=== PATIENT | male | born 1955 | race Caucasian/White ===

== ENCOUNTER → 2024-01-17 08:41 | Outpatient (REF) | payer MEDICARE, SELFPAY | LOC: HWRAD 08:41 | PROVIDERS: ATTENDING PHYSICIAN Internal Medicine Hematology & Oncology; FAMILY PHYSICIAN Family Medicine | DX: D72.829 Elevated white blood cell count, unspecified (principal); D52.9 Folate deficiency anemia, unspecified; C91.10 Chronic lymphocytic leukemia of B-cell type not having achieved remission | CPT/HCPCS: 71260; 74177; Q9967 ==

== ENCOUNTER → 2024-02-15 13:18 | Outpatient (REF) | payer MEDICARE, SELFPAY | LOC: DHCBC MAIN 13:18 | PROVIDERS: ATTENDING PHYSICIAN Surgery Vascular Surgery; FAMILY PHYSICIAN Family Medicine; REFERRING PHYSICIAN Internal Medicine Cardiovascular Disease | DX: I71.40 Abdominal aortic aneurysm, without rupture, unspecified (principal); I73.9 Peripheral vascular disease, unspecified; Z01.810 Encounter for preprocedural cardiovascular examination | CPT/HCPCS: 93306 ==

== ENCOUNTER → 2024-02-23 14:43 | Outpatient (REF) | payer MEDICARE, SELFPAY | LOC: HWRAD 14:43 | PROVIDERS: ATTENDING PHYSICIAN Nurse Practitioner Acute Care; FAMILY PHYSICIAN Family Medicine; OTHER PHYSICIAN Surgery Vascular Surgery; REFERRING PHYSICIAN Internal Medicine Cardiovascular Disease | DX: I71.40 Abdominal aortic aneurysm, without rupture, unspecified (principal); Z01.810 Encounter for preprocedural cardiovascular examination | CPT/HCPCS: 93880 ==

== ENCOUNTER → 2024-03-05 07:07 | Outpatient (REF) | payer MEDICARE, SELFPAY | LOC: DHCBC/DCA 07:07 | PROVIDERS: ATTENDING PHYSICIAN Surgery Vascular Surgery | DX: I71.40 Abdominal aortic aneurysm, without rupture, unspecified (principal); I73.9 Peripheral vascular disease, unspecified; Z01.810 Encounter for preprocedural cardiovascular examination | CPT/HCPCS: 78452; 93017; A9500; J2785 ==

== ENCOUNTER 2024-05-15 12:43 | Emergency (ER) | payer MEDICARE, SELFPAY ==
[2024-05-15 12:50] VITALS: BP 131/73
[2024-05-15 13:20] LABS: % Basophils 0.3 % (0-2); % Eosinophils 3.3 % (0-6); % Immature Granulocytes 0.2 % (0-0.5); % Lymphocytes 64.4 % (20.5-51.1); % Monocytes 1.7 % (1.7-9.3); % Neutrophils 30.1 % (42.2-75.2); Absolute Basophils 0.1 10^3/uL (0-0.2); Absolute Eosinophils 0.6 10^3/uL (0-0.7); Absolute Lymphocytes 11.8 10^3/uL (1.2-3.4); Absolute Monocytes 0.3 10^3/uL (0.1-0.6); Absolute Neutrophils 5.5 10^3/uL (1.4-6.5); Hematocrit 27.5 % (39.0-52.0); Hemoglobin 9.4 g/dL (13.0-18.0); Mean Corp Hgb Conc. 34.2 g/dL (33.0-37.0); Mean Corpuscular Hgb 33.5 pg (27.0-31.0); Mean Corpuscular Volume 97.9 fL (80.0-94.0); Mean Platelet Volume 9.4 fL (7.4-10.4); Nucleated Red Blood Cells % 0 % (-); Platelet Count 228 10^3/uL (130-400); Red Blood Cell Count 2.81 10^6/uL (4.70-6.10); Red Cell Dist. Width 13.9 % (11.5-14.5); White Blood Cell Count 18.4 10^3/uL (4.8-10.8)
[2024-05-15 13:48] LABS: ALT (SGPT) 13 U/L (0-50); AST (SGOT) 17 U/L (17-59); Albumin 3.9 g/dl (3.5-5.0); Alkaline Phosphatase 98 U/L (38-126); Blood Urea Nitrogen 45 mg/dl (9-20); Calcium 8.9 mg/dl (8.4-10.2); Carbon Dioxide 22 mmol/L (22-30); Chloride 100 mmol/L (98-107); Glucose 218 mg/dl (70-99); Potassium 4.8 mmol/L (3.5-5.1); Sodium 131 mmol/L (135-145); Total Bilirubin 0.7 mg/dl (0.2-1.3); Total Protein 6.7 g/dl (6.3-8.2); eGFR 12.33
[2024-05-15 14:19] VITALS: BMI 19.1
[2024-05-15 14:27] VITALS: BP 135/67
--- NOTE | 2024-05-15 15:00 | ED.GENMED ---
History of Present Illness
<Justine Zabala PA-C - Last Filed: 05/15/24 19:01>
General
Chief Complaint: Weakness
Source: patient and family
Exam Limitations: none
Time Seen by Provider: 05/15/24 14:39
Nursing documentation reviewed up to this point in time: agreed with
History of Present Illness
History of Present Illness:
68 y/o M with h/o recent AAA repair and R iliac artery stent last week at [facility]
noticed incidentally on imaging after pt's w/u for CLL last month
had CKD cr 1.9 prior to procedure but worsened to 3 after
had neprhology eval there with imaging, etc and maybe mild ATN
pt was discharged with cr of 3.5 and sent for outpatien tlabs showing 2 days ago that his cr worsened to 4.4
pt has not been eating/drinking and has been having weight loss and fatigue
incidnetally he noticed marlys on his right back that looks like shingles that is new today
pt has not had any trouble urinating
no back pain, cp, sob, fever
Past History
<Justine Zabala PA-C - Last Filed: 05/15/24 19:01>
Past History
ED Past Medical History: Other (Peripheral vascular disease)
ED Past Surgical History: Orthopedic (Rotator cuff repair, carpal tunnel repair)
Patient has exhibited threatening behavior?: No
Social History
Tobacco: Smoker
Alcohol: None
Drug: None
Personal:
Living: with family
Employment: Employed
Family History
Family History: Early CAD
Review of Systems
<Justine Zabala PA-C - Last Filed: 05/15/24 19:01>
Review of Systems
Allergies reviewed?: Yes
All Other Systems: Not applicable
Phy Exam
<Justine Zabala PA-C - Last Filed: 05/15/24 19:01>
Physical Exam
Physical Exam:
GENERAL: Alert , in no apparent distress, thin
EYE: pupils equal and reactive
NECK: Supple
ENT: o/p clr, dry mouth
CARDIAC: Regular rate and rhythm .
LUNGS: Clear breath sounds bilaterally, no acute respiratory distress, no wheezes/rales/rhonchi
ABDOMEN: Soft, without focal tenderness, no r/g, no cvat, normal bowel sounds
well healed incisions
NEUROLOGICAL: Alert and oriented, no focal neuro deficits
SKIN: Warm and dry, skin intact.
vesicular rash right back c/w shingles
MUSCULOSKELETAL: No edema, well perfused. neg ade's sign
PSYCH: Normal and appropriate interaction.
Course
<Justine Zabala PA-C - Last Filed: 05/15/24 19:01>
Orders/Labs/Results
Orders:
Orders
05/15/24 12:55
Electrocardiogram (*1) Urgent
Reason for Study: Fatigue / Weakness
EKG- Treatment ONCE
05/15/24 13:05
Complete Blood Count/With Diff Urgent
Comprehensive Metabolic Panel Urgent
05/15/24 15:31
Bladder Scan- Treatment ONCE
05/15/24 15:32
0.9% Sodium Chloride 500 ml [Nss] 500 ml IV BOLUS
05/15/24 15:47
Urinalysis Reflex To Culture Urgent
Date Specimen was Collected: 05/15/24
Time Specimen was Collected: 15:45
Urine Microscopic Reflex Cult Urgent
05/15/24 17:41
Consult Nephrology [NEPHROLOGY CONSULT] Urgent
Consulting Provider: Fiona Jacome
Was physician already notified: Yes
05/15/24 18:13
HOSPITALIST CONSULT Urgent
Consulting Provider: Christopher Iglesias
Was physician already notified: Yes
05/15/24 18:45
US Renal Only W/O Bladder Urgent
Comment:
Reason For Exam: acute renal failure, recent AAA repair and R iliac
05/15/24 18:52
0.9% Sodium Chloride 500 ml [Nss] 500 ml IV BOLUS
05/15/24 18:58
US Aorta [US Abdominal Aorta] Urgent
Comment:
Reason For Exam: s/p AAA repair, arf
Abnormal Lab Results
05/15/24 05/15/24
13:05 15:47
WBC 18.4 H 10^3/uL
(4.8-10.8)
RBC 2.81 L 10^6/uL
(4.70-6.10)
Hgb 9.4 L g/dL
(13.0-18.0)
Hct 27.5 L %
(39.0-52.0)
MCV 97.9 H fL
(80.0-94.0)
MCH 33.5 H pg
(27.0-31.0)
Absolute Lymphs (auto) 11.8 H 10^3/uL
(1.2-3.4)
Neutrophils % 30.1 L %
(42.2-75.2)
Lymphocytes % 64.4 H %
(20.5-51.1)
Sodium 131 L mmol/L
(135-145)
BUN 45 H mg/dl
(9-20)
Creatinine 4.8 H* mg/dL
(0.7-1.3)
Glucose 218 H mg/dl
(70-99)
Urine Bilirubin 1+ A
(Negative)
Leukocyte Esterase Rfl Trace A
(Negative)
Urine Bacteria (Reflex) Few A
(Negative)
Urine Glucose Trace A
(Negative)
Urine Albumin (Reflex) 1+ A
(Neg - Trace)
05/15/24 13:05
05/15/24 13:05
Vital Signs
Initial and Last Documented VS:
Initial Vital Signs
Temp Pulse Resp BP Pulse Ox
98.2 F 92 16 131/73 95
05/15/24 12:50 05/15/24 12:50 05/15/24 12:50 05/15/24 12:50 05/15/24 12:50
Last Documented Vital Signs
Temp Pulse Resp BP Pulse Ox
98.2 F 79 19 135/67 99
05/15/24 12:50 05/15/24 14:27 05/15/24 14:27 05/15/24 14:27 05/15/24 14:27
<Hill Bhatti, DO - Last Filed: 05/15/24 19:56>
Orders/Labs/Results
Orders:
Orders
05/15/24 12:55
Electrocardiogram (*1) Urgent
Reason for Study: Fatigue / Weakness
EKG- Treatment ONCE
05/15/24 13:05
Complete Blood Count/With Diff Urgent
Comprehensive Metabolic Panel Urgent
05/15/24 15:31
Bladder Scan- Treatment ONCE
05/15/24 15:32
0.9% Sodium Chloride 500 ml [Nss] 500 ml IV BOLUS
05/15/24 15:47
Urinalysis Reflex To Culture Urgent
Date Specimen was Collected: 05/15/24
Time Specimen was Collected: 15:45
Urine Microscopic Reflex Cult Urgent
05/15/24 17:41
Consult Nephrology [NEPHROLOGY CONSULT] Urgent
Consulting Provider: Fiona Jacome
Was physician already notified: Yes
05/15/24 18:13
HOSPITALIST CONSULT Urgent
Consulting Provider: Christopher Iglesias
Was physician already notified: Yes
05/15/24 18:45
US Renal Only W/O Bladder Urgent
Comment:
Reason For Exam: acute renal failure, recent AAA repair and R iliac
05/15/24 18:52
0.9% Sodium Chloride 500 ml [Nss] 500 ml IV BOLUS
05/15/24 18:58
US Aorta [US Abdominal Aorta] Urgent
Comment:
Reason For Exam: s/p AAA repair, arf
Abnormal Lab Results
05/15/24 05/15/24
13:05 15:47
WBC 18.4 H 10^3/uL
(4.8-10.8)
RBC 2.81 L 10^6/uL
(4.70-6.10)
Hgb 9.4 L g/dL
(13.0-18.0)
Hct 27.5 L %
(39.0-52.0)
MCV 97.9 H fL
(80.0-94.0)
MCH 33.5 H pg
(27.0-31.0)
Absolute Lymphs (auto) 11.8 H 10^3/uL
(1.2-3.4)
Neutrophils % 30.1 L %
(42.2-75.2)
Lymphocytes % 64.4 H %
(20.5-51.1)
Sodium 131 L mmol/L
(135-145)
BUN 45 H mg/dl
(9-20)
Creatinine 4.8 H* mg/dL
(0.7-1.3)
Glucose 218 H mg/dl
(70-99)
Urine Bilirubin 1+ A
(Negative)
Leukocyte Esterase Rfl Trace A
(Negative)
Urine Bacteria (Reflex) Few A
(Negative)
Urine Glucose Trace A
(Negative)
Urine Albumin (Reflex) 1+ A
(Neg - Trace)
05/15/24 13:05
05/15/24 13:05
Vital Signs
Initial and Last Documented VS:
Initial Vital Signs
Temp Pulse Resp BP Pulse Ox
98.2 F 92 16 131/73 95
05/15/24 12:50 05/15/24 12:50 05/15/24 12:50 05/15/24 12:50 05/15/24 12:50
Last Documented Vital Signs
Temp Pulse Resp BP Pulse Ox
98.2 F 79 19 135/67 99
05/15/24 12:50 05/15/24 14:27 05/15/24 14:27 05/15/24 14:27 05/15/24 14:27
<Justine Zabala PA-C - Last Filed: 05/15/24 19:01>
MDM/Problems Addressed
Differential Diagnosis Includes:
ARF, obstruction, dehydration, vascular injury less likely, has had imaging post op
MDM/Problems Addressed:
68 y/o M cll
AAA and R iliac artery stenting last week [facility]
had HIRA following procedure
worsening on outpatient labs
sent by neoprhology for /rand
family spoke with his retail and promotions coordinator and vascular surgery and both said he cold come to [place]
pt is not eating well, looks dry
bun 40s
cr 4.8
ordered ua with PVR
d/w pt's retail and promotions coordinator dr. kelly from [facility] who felt the patient could stay at this hospital and have a nephrology consult for workup for his worsening HIRA. She also thought with the weight loss it could be all prerenal.
Patient's potassium is normal. I did discuss with Dr. Jacome who is the retail and promotions coordinator on-call for nephrology here and she says she will be in touch with Dr. Kelly. Dr. Kelly's number is [phone] Montano is the vascular surgeon and his
number is [phone]
<Justine Zabala PA-C - Last Filed: 05/15/24 19:01>
*Critical Care Note
Total Time (30-74mins, 75-104mins- exclusive of procedures): Not Applicable
<Hill Bhatti DO - Last Filed: 05/15/24 19:56>
*Critical Care Note
Total Time (30-74mins, 75-104mins- exclusive of procedures): 45 minutes
<Justine Zabala PA-C - Last Filed: 05/15/24 19:01>
Update Note
Update Note:
05/15/2024 1855 PM
the patient was admitted with nephrology consult and ultimately the hospitalist requested he be transferred back to [facility] for the ability to obtain vascular consultation since he is only 2 weeks post op
the hopsitalist apparently spoke with vascular surgery here who felt that the patietn would best be served there, as he was just operated on.
i did speak with dr. montano vascular surgery at [facility] who did not feel that the patietn needed to be transferred, that the graft was evaluated and unliekyl to be infected
ultimately he was accepted by [facility] hospitalist service and will arrange transport
he requested renal US
pt does have a shingles rash and will need contact precautions
ED Attending Note
<Justine Zabala PA-C - Last Filed: 05/15/24 19:01>
-
Portions of this chart may have been created with voice recognition software.� Occasional wrong word or��sound alike� substitutions may have occurred due to the inherent limitations of voice recognition software.
<Hill Bhatti DO - Last Filed: 05/15/24 19:56>
ED Attending Note
Patient seen and examined by attending physician: Yes
I performed the substantive portion of visit, reviewed & personally made and approve the management plan that is documented in note by myself or DIXON.: Yes
ED Attending Note:
5-year-old male with recent AAA repair who presents with progressive renal failure. Patient is stable. Exam: Awake and alert, no complaints, no respiratory distress. Assessment and plan: Case extensively discussed with our medicine team and renal
as well as [facility] nephrology, medicine and vascular surgery. Vascular surgery doubts any complication related to his current renal function. Postop hospital team recommends transfer. Case was accepted by vascular surgery somewhat
reluctantly however. Patient remained stable. [facility].
Discharge Plan
Departure
Patient Disposition: Acute Care Hospital
Date of Disposition: 05/15/24
Time of Disposition: 17:40
Condition: Fair
Discharge Problem:
Acute renal failure
Prescriptions:
No Action
nicotine 21 MG patch 24 hour
21 mg transdermal DAILY
clopidogrel 75 MG tablet
75 mg PO DAILY
atorvastatin [Lipitor] 20 mg Tablet
20 mg PO NOON
amlodipine [Norvasc] 5 mg Tablet
5 mg PO NOON
Referrals:
Jeffrey Salinas, DO [Family Provider] -
Hospital Transfer
Other hospital: [facility]
I certify that the patient requires transfer: Yes
Discussed case with accepting physician: reagan
Reason for transfer: higher level of care and availability of service
Interventions
Interventions:
*Risk Screen - Suicide Last Done: 05/15/24 14:33
*General Assessment Last Done: 05/15/24 14:32
*Neglect/Abuse Screening Last Done: 05/15/24 14:33
ED- Fall Risk Assessment Last Done: 05/15/24 14:35
*ED COVID-19 Vaccine History Last Done: 05/15/24 12:50
ED- Cardiac Assessment Last Done: 05/15/24 14:35
ED- Neurological Assessment Last Done: 05/15/24 14:35
ED- Pulmonary Assessment Last Done: 05/15/24 14:35
Discharge Date and Time
Print Language: ITALIAN
[2024-05-15 16:03] LABS: Urine Albumin 1+ (Neg - Trace); Urine Bilirubin 1+ (Negative); Urine Character Clear (Clear); Urine Color Yellow; Urine Glucose Trace (Negative); Urine Ketone Negative (Negative); Urine Leukocyte Trace (Negative); Urine Nitrite Negative (Negative); Urine Occult Blood Negative (Negative); Urine Specific Gravity 1.025 (<1.030); Urine Urobilinogen 1+ (Neg - 1+)
[2024-05-15 16:31] LABS: Urine Bacteria Few (Negative); Urine Red Blood Cell 0-2 /HPF (0-2)
[2024-05-15] MEDS: NSS 500 IV ×2 (16:46→19:10)
--- NOTE | 2024-05-15 17:42 | CON.HOSP ---
Addendum entered and electronically signed by Christopher Iglesias MD 05/16/24 07:54:
As per PA note, pt underwent endograft implantation at [facility] on 04/29. He had recently been dx with CLL, with a baseline WBC of ~13k. Post procedure his WBC apparently remained ~baseline, though his Creat trended up into the mid 3's. Outpatient labs
now demonstrated a Creat of 4.4 and was recommended patient present to ER for further evaluation. He is here with his twin sister, who supplies the bulk of the history
Cigs 1ppd x 40 years, currently states 11/23 ppd
Lungs holoexpiratory wheeze, E>>I
CV reg
Abd soft, nondistended
Ext no edema
Skin classic shingles rash rt side, back most prominently, dermatome T5
Neuro awake, alert, as per sister, no change in cognition from baseline
Imp: AKF on CKD of uncertain etiology
Hx of CLL with significant rise in WBC
s/p recent endograft for 6.5 cm AAA
COPD with active wheeze
~10 lb wt loss since procedure
Acute shingles
P: call placed and discussed with Dr. Hal Garvin who recommends Vascular evaluation with surgeon who performed the procedure and knows the patient well. Further discussed with Dr. Jacome who agrees that further evaluation should be performed at center
where recent procedure performed to allow for a more comprehensive evaluation. Discussed with ER, NICOLE Stone and transfer arrangements were put in place.
Time spent on evaluation and management 90 minutes
Was transferred to [facility]
Original Note:
Consultation
-
Date/Time Consultation Requested: May 15, 2024 at 1600
Date/Time Consultation Performed: May 15 at 1700
Requesting Provider: NICOLE Stone-Ana
Performing Provider: Dr. Christopher Iglesias
Reason for Consultation: Acute Kidney Injury
Family Physician
-
Family Physician: Jeffrey Salinas
Chief Complaint
-
Worsening Renal Function
History of Present Illness
Patient is a 68 y/o male past medical history of peripheral artery disease with recent AAA repair and right iliac stent placement at [place] on April 29 who presents with worsening renal function. Prior to procedure patient's creatinine was 1.9.
Patient's creatinine osmel to mid 3s post-procedure which was thought to be related to hypotension vs contrast induced ATN. His creatinine was stable for several days prior to discharge however since discharge renal function has worsen over the last
week and Cr is now up to 4.8. Patient has been experiencing poor appetite since the procedure and has lost about 10lbs.
Medical History
Past Medical History
Past Medical History: Reports Other
Additional Past Medical History:
Peripheral Arterial Disease
Abdominal Aortic Aneurysm
Essential Hypertension
CKD Stage III
Past Surgical History: Reports Other
Additional Past Surgical History:
AAA Repair
Right Iliac Artery Stent
Left Carpal Tunnel
Right Rotator Cuff
Social History
Tobacco: Smoker (Patient reports about 5 cigarettes per day)
Family History
Family History: Reviewed & Not Pertinent
Allergies / Home Medications
Allergies reflects when Allergies were last updated in [employer].
Home Medications with original date entered in [employer]
Allergy/Medication List:
Allergies
Allergy/AdvReac Type Severity Reaction Status Date / Time
No Known Allergies Allergy Verified 05/15/24 12:54
Home Medications
clopidogrel 75 mg tablet 75 mg PO DAILY 03/10/20
nicotine 21 mg/24 hr daily transdermal patch 21 mg transdermal DAILY 03/10/20
amlodipine 5 mg tablet (Norvasc) 5 mg PO NOON 05/15/24
atorvastatin 20 mg tablet (Lipitor) 20 mg PO NOON 05/15/24
Review of Systems
-
A 12 point Review of Systems was completed except as noted: Yes
Constitutional: Denies Fever or Chills
Respiratory: Denies Cough or Trouble Breathing
Cardiac: Denies Chest Pain or Palpitations
Physical Exam
Vital Signs
Vital Signs
Temp Pulse Resp BP Pulse Ox
98.2 F 79 19 135/67 99
05/15/24 12:50 05/15/24 14:27 05/15/24 14:27 05/15/24 14:27 05/15/24 14:27
Physical Exam
General: No Apparent Distress and Comfortable
HEENT: Normocephalic and Anicteric
Respiratory: Wheezes and Non Labored Respirations
Cardiac: S1/S2 and Regular Rhythm
GI: Soft and Non Tender
Musculoskeletal: No Clubbing, No Cyanosis and No Edema
Skin: Warm, Dry and Other (Vesicular rash noted across right back/flank)
Neuro: Awake, Alert and Oriented
Psych: Calm
Laboratory Results
-
Laboratory Results
05/15/24 13:05
05/15/24 13:05
Total Bilirubin 0.7 mg/dl (0.2-1.3) 05/15/24 13:05
AST 17 U/L (17-59) 05/15/24 13:05
ALT 13 U/L (0-50) 05/15/24 13:05
Alkaline Phosphatase 98 U/L (38-126) 05/15/24 13:05
Data Reviewed
-
Lab Data: Labs Reviewed
Impression / Plan
-
Acute Kidney Injury on CKD III - High Clinical Concern for Post-Op Complication
-Reviewed with Nephrology and Vascular Surgery who both recommend transfer to [place] where patient's surgery was performed
-Reviewed with emergency department who will arrange transfer
--- NOTE | 2024-05-15 20:08 | W.PN.UPDATE ---
Update Note
Progress Note Update
Briefly, Mr. Leon is a 68YOM with a history of significant PAD and recent diagnosis of CLL who was incidentally found to have an 11cm AAA. About two weeks ago, he underwent a repair and a R iliac artery stent placement at [facility]
[place]. Per the oxygen equipment preparer (Dr. Weems) who cared for him at [facility], prior to the surgery his Cr was 1.9. Post operatively, his Cr peaked around 3.6, and he was discharged with a Cr around 2.8-3.2. The mechanism of injury to his kidney was
thought to be ATN vs KASSANDRA. No casts were seen on microscopy but he was noted to have 2+ protein (?ATN). JOVANY was held and the patient was discharged with amlodipine 5mg. Post operative blood work showed a Cr elevation to 4.4 and the patient was
encouraged to present to the ER. He is vitally stable. Patient's labs are notable for a Cr of 4.9 and WBC count of 18. He denies any pain or discomfort over his surgical site. His physical exam was notable for a vesicular rash in a dermatomal
distribution on his back. He has lost 10+ lbs since discharge and states he has minimal appetite.
I discussed with the patient that since he is so close to his surgery, I would like eval by vascular surgery. Unfortuantely, we are unable to provide that here at . My recommendation would be for transfer to [facility] so the patient can be eval'd by
vascular surgery. His rising Cr is extremely concerning and if there is a reversible systemic process going on it should be managed SHANI. In the interim, I would obtain UA, UPCR, UACR, kidney ultrasound + PVR, and consider duplex if these are all
benign. He has no urgent indications for dialysis at this time.
[2024-05-15 20:46] VITALS: BP 152/76
[2024-05-15 21:17] LABS: Protein/creatinine Ratio 0.5; Urine Protein 89 mg/dl; Urine Sodium 24 mmol/L (30-90)
[2024-05-15 21:21] LABS: Microalbumin, Random Urine 10.3 mg/dl (0.6-1.7); Microalbumin/creatinine Ratio 60.3 mg/g
== END 2024-05-15 21:25 | disposition short-term general hospital (02) ==
LOC: EMR 12:43
PROVIDERS: Emergency Medicine; Physician Assistant; CONSULT PHYSICIAN Internal Medicine; CONSULT PHYSICIAN Student in an Organized Health Care Education/Training Program; EMERGENCY PHYSICIAN Emergency Medicine; FAMILY PHYSICIAN Family Medicine
DX: N17.9 Acute kidney failure, unspecified (principal)
CPT/HCPCS: 99291; 96360; 76775; 80053; 81003; 81015; 82043; 82570; 84156; 84300; 85025; 93005

== ENCOUNTER 2025-04-16 16:32 | Emergency (ER) | payer MEDICARE, SELFPAY ==
--- NOTE | 2025-04-16 16:39 | ED.GENMED ---
History of Present Illness
General
Chief Complaint: Breathing Problem
Time Seen by Provider: 04/16/25 16:38
History of Present Illness
History of Present Illness:
TIME OF INITIAL ENCOUNTER: 3 PM
HPI: The patient presents due to shortness of breath. He has a history of COPD. He does not wear oxygen at home. I spoke to his sister at bedside who states that he does not have heart failure. The patient has noted lower extremity edema. He
has associated cough and chest congestion.
EXAM:
GENERAL: Is ill-appearing, patient is afebrile
HEENT: Moist oral mucosa
CARDIOVASCULAR: No murmurs, normal heart rate, regular rhythm, No chest wall tenderness
PULMONARY: Moderate respiratory distress, coarse breath sounds with wheeze bilaterally
ABDOMEN: Soft with no peritoneal signs, no tenderness
NEUROLOGIC: Fair strength all extremities, no coordination deficits
PSYCHIATRIC: Appears somewhat confused with limited insight and judgment
EXTREMITIES: Nontender, no edema, moves all extremities equally
SKIN: No rash, no lesions
NUMBER AND COMPLEXITY OF PROBLEMS ADDRESSED AT THE ENCOUNTER
� Chronic conditions affecting care: COPD, CLL
� Acute Exacerbation and/or Progression of Chronic Illness: This is an acute problem
� Differential Diagnosis includes: COPD exacerbation, pneumonia, bronchiectasis, reactive airway disease, bronchitis, low suspicion for CHF
AMOUNT AND/OR COMPLEXITY OF DATA TO BE REVIEWED AND ANALYZED
� I performed an independent evaluation of and my interpretation is:
EKG: Sinus 87, septal Q waves with minimal ST elevation slightly more prominent in comparison to 05/15/2024, PVCs
CT:
X-rays: Chest x-ray shows some densities on top of COPD
Laboratory Studies: White count 15.3 electrolytes normal, creatinine 2.4 which is lower than prior, BNP is over 2000 with no old to compare, troponin 0.015
Other:
� Review of other/old records: The patient was admitted with renal insufficiency in April 2024. After management of AAA and right iliac artery stent placed he is creatinine 1 from a baseline of 1.9-3.6 last year which was felt to
be either ATN or KASSANDRA as the patient also had 2+ protein in the urine.
� Clinical information was obtained by an independent historian: I spoke to the sister at bedside
� Prescriptions/Medications Considered but not given:
� Further testing considered but not performed:
RISK OF COMPLICATIONS AND/OR MORBIDITY OR MORTALITY OF PATIENT MANAGEMENT
� Social determinants of health affecting care:
� Discussion with other providers: Hospitalist, Dr. Masters for admission
� Escalation of care including admission/observation vs risk of discharge considered: The patient was seen immediately upon arrival. He was given several DuoNebs and IV steroids. The patient was briefly on oxygen initially
placed on in triage however after I took him off of oxygen his room air sats, after treatments have been 97%. Creatinine has improved compared to April of last year when it was 4.8.
ANY OTHER UPDATES:
5:30 PM: I reassessed patient. Sats are about 95% on room air. Work of breathing has greatly improved. Still with wheeze.
Past History
Past History
ED Past Medical History: Other (Peripheral vascular disease)
ED Past Surgical History: Orthopedic (Rotator cuff repair, carpal tunnel repair)
Patient has exhibited threatening behavior?: No
Social History
Tobacco: Smoker
Alcohol: None
Drug: None
Personal:
Living: with family
Employment: Employed
Family History
Family History: Early CAD
Phy Exam
Physical Exam
Physical Exam:
See HPI
Scores
Heart Failure Risk
Heart Failure Risk Score: Not Applicable
Course
Orders/Labs/Results
Orders:
Orders
04/16/25 15:15
Complete Blood Count/With Diff Routine
Comprehensive Metabolic Panel Routine
NT-proBNP Routine
Troponin I Routine
04/16/25 16:51
Electrocardiogram (*1) Urgent
Reason for Study: Chest Pain
EKG- Treatment ONCE
04/16/25 17:41
Azithromycin 500 mg/250 ml [Zithromax Infusion] 500 mg in 250 ml IV NOW
CefTRIAXone [Rocephin] 1,000 mg IV NOW STA
04/16/25 17:48
CT Chest W/o Iv Contrast Urgent
Comment:
Reason For Exam: smoker, abnormal CXR
04/16/25 18:06
Lactic Acid Q4H
Comment: CANCEL 2nd LACTIC ACID IF 1st LACTIC ACID IS LESS THAN 2
Blood Culture Q30M
PACO Source: Blood/Venous
Specimen Description:
04/16/25 18:07
Blood Culture Q30M
PACO Source: Blood/Venous
Specimen Description:
04/16/25 18:11
Sterile Water [Sterile Water For Injection] 10 ml .ROUTE .[facility]
04/16/25 21:45
Lactic Acid Q4H
Comment: CANCEL 2nd LACTIC ACID IF 1st LACTIC ACID IS LESS THAN 2
Abnormal Lab Results
04/16/25
15:15
WBC 15.3 H 10^3/uL
(4.8-10.8)
RBC 4.41 L 10^6/uL
(4.70-6.10)
MCV 99.1 H fL
(80.0-94.0)
MCH 32.9 H pg
(27.0-31.0)
Absolute Lymphs (auto) 9.8 H 10^3/uL
(1.2-3.4)
Absolute Monos (auto) 1.8 H 10^3/uL
(0.1-0.6)
Neutrophils % 22.6 L %
(42.2-75.2)
Lymphocytes % 64.2 H %
(20.5-51.1)
Monocytes % 11.5 H %
(1.7-9.3)
BUN 27 H mg/dl
(9-20)
Creatinine 2.4 H mg/dL
(0.7-1.3)
Alkaline Phosphatase 137 H U/L
(38-126)
Total Protein 8.6 H g/dl
(6.3-8.2)
04/16/25 15:15
04/16/25 15:15
Vital Signs
Initial and Last Documented VS:
Initial Vital Signs
Temp Pulse Ox
36.3 C 100
04/16/25 15:30 04/16/25 15:30
Last Documented Vital Signs
Temp Pulse Resp BP Pulse Ox
36.3 C 89 21 181/85 97
04/16/25 15:30 04/16/25 18:30 04/16/25 18:30 04/16/25 18:00 04/16/25 18:30
*Critical Care Note
Total Time (30-74mins, 75-104mins- exclusive of procedures): Not Applicable
ED Attending Note
-
Portions of this chart may have been created with voice recognition software.� Occasional wrong word or��sound alike� substitutions may have occurred due to the inherent limitations of voice recognition software.
Discharge Plan
Departure
Patient Disposition: Admit
Date of Disposition: 04/16/25
Time of Disposition: 17:45
Presentation/result/management discussed w/ accepting MD/DO: Hospitalist
Discharge Problem:
Acute exacerbation of chronic obstructive pulmonary disease (COPD)
Prescriptions:
No Action
clopidogrel 75 MG tablet
75 mg PO DAILY
ibuprofen [Advil] 200 mg Tablet
400 mg PO BIDPRN PRN (Reason: MILD PAIN)
mirtazapine 15 mg tablet
15 mg PO HS
Referrals:
UNKNOWN - PT DOES,NOT KNOW [Family Provider]
Interventions
Interventions:
*Risk Screen - Suicide Last Done: 04/16/25 15:30
*General Assessment Last Done: 04/16/25 15:30
*Neglect/Abuse Screening Last Done: 04/16/25 15:30
*ED- Fall Risk Assessment Last Done: 04/16/25 15:30
*ED COVID-19 Vaccine History Last Done: 04/16/25 17:30
ED- Cardiac Assessment Last Done: 04/16/25 15:30
ED- Pulmonary Assessment Last Done: 04/16/25 15:30
Discharge Date and Time
Print Language: TANZANIAN
[2025-04-16 16:45] VITALS: BP 154/87
--- NOTE | 2025-04-16 16:52 | DOWNTIME ---
There was a [employer] Downtime on 04/16/2025 from 1230 to 04/16/2025 at 1550. Downtime documentation of patient's care, including medication administrations, has been reconciled in the electronic record per guidelines. Refer to the
patient's paper chart under the miscellaneous tab to see printed paper medication records and downtime forms.
[2025-04-16 17:00] VITALS: BP 152/84
[2025-04-16 17:25] LABS: ALT (SGPT) 15 U/L (0-50); AST (SGOT) 21 U/L (17-59); Albumin 4.6 g/dl (3.5-5.0); Alkaline Phosphatase 137 U/L (38-126); Blood Urea Nitrogen 27 mg/dl (9-20); Calcium 9.1 mg/dl (8.4-10.2); Carbon Dioxide 25 mmol/L (22-30); Chloride 107 mmol/L (98-107); Estimated Creatinine Clearance 27 ml/min; Glucose 95 mg/dl (70-99); Potassium 4.9 mmol/L (3.5-5.1); Sodium 140 mmol/L (135-145); Total Bilirubin 0.7 mg/dl (0.2-1.3); Total Protein 8.6 g/dl (6.3-8.2); eGFR 28.14
[2025-04-16 17:31] LABS: Hematocrit 43.7 % (39.0-52.0); Hemoglobin 14.5 g/dL (13.0-18.0); Mean Corp Hgb Conc. 33.2 g/dL (33.0-37.0); Mean Corpuscular Hgb 32.9 pg (27.0-31.0); Mean Corpuscular Volume 99.1 fL (80.0-94.0); Platelet Count 163 10^3/uL (130-400); Red Blood Cell Count 4.41 10^6/uL (4.70-6.10); Red Cell Dist. Width 14.4 % (11.5-14.5); White Blood Cell Count 15.3 10^3/uL (4.8-10.8)
[2025-04-16 17:36] LABS: NT-proBNP 2120 pg/ml; Troponin I 0.015 ng/ml
[2025-04-16 17:39] LABS: % Basophils 0.2 % (0-2); % Eosinophils 1.3 % (0-6); % Immature Granulocytes 0.2 % (0-0.5); % Lymphocytes 64.2 % (20.5-51.1); % Monocytes 11.5 % (1.7-9.3); % Neutrophils 22.6 % (42.2-75.2); Absolute Eosinophils 0.2 10^3/uL (0-0.7); Absolute Lymphocytes 9.8 10^3/uL (1.2-3.4); Absolute Monocytes 1.8 10^3/uL (0.1-0.6); Absolute Neutrophils 3.5 10^3/uL (1.4-6.5); Nucleated Red Blood Cells % 0 % (-)
[2025-04-16 18:00] VITALS: BP 181/85
--- NOTE | 2025-04-16 18:02 | HPS.HSE ---
Family Physician
-
Family Physician: NOT KNOW UNKNOWN - PT DOES
Chief Complaint
-
Shortness of breath, cough, congestion acute onset today
History of Present Illness
69-year-old male with shortness of breath, cough and chest congestion he states that abruptly started this afternoon while he was sitting. He reports he lives alone has not been around any sick contacts he is unsure whether or not the shortness of
breath happened after smoking a cigarette. He reportedly smokes outside half a pack a day for the past year but prior 1 pack a day greater than 55 years. He had labored breathing with wheezes bilaterally when he presented to the ER he was given IV
Solu-Medrol with 3 rounds of DuoNebs and had improvement in his oxygen to 95%. He denies sore throat, headache, fever, chills, chest pain, palpitations, abdominal pain, nausea, vomiting, diarrhea, urinary symptoms. He had chest x-ray showing
increased densities on top of COPD he was given IV Rocephin and Zithromax there was a nodular opacity found in the left lung base given his history of COPD and heavy smoker ER is ordering a CT of the chest noncontrast due to creatinine of 2.4.
Patient has past medical history of COPD, active smoker, PVD/right iliac artery stent placement [facility] February 2024, CVA 2023 at [facility] patient reports left-sided weakness resolved but has short/long-term memory impairment from that. He also has
CLL diagnosed approximately 5 years ago but is not getting any current treatment.
Medical History
Past Medical History
Past Medical History: Reports Other
Additional Past Medical History:
COPD
Active smoker greater than 55 years 1 pack a day
Hx right hilar mass [address] patient unaware
CLL Dx greater than 5 years no current treatment
PVD/right iliac stent placement [facility] February 2024
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
AAA 11 cm per chart 05/15/2024 found at [facility]
ATN versus KASSANDRA February 2024
CKD 4
Past Surgical History: Reports Other
Additional Past Surgical History:
Right rotator cuff repair
CTR repair
PAD/right iliac artery stent placement [facility] February 2024
Social History
Tobacco: Smoker (1 pack a day x 55 years current half pack a day times past year)
Alcohol: None
Drug: None
Personal: Single
Living: Alone
Employment: Retired
Family History
Family History: Other (States father [place] age 50 older sister unsure twin sister healthy)
Allergies / Home Medications
Allergies reflects when Allergies were last updated in [employer].
Home Medications with original date entered in [employer]
Allergy/Medication List:
Allergies
Allergy/AdvReac Type Severity Reaction Status Date / Time
No Known Allergies Allergy Verified 05/15/24 12:54
Home Medications
clopidogrel 75 mg tablet 75 mg PO DAILY Blood Clot Prevention/Tx 03/10/20
ibuprofen 200 mg tablet (Advil) 400 mg PO BIDPRN PRN MILD PAIN 04/16/25
mirtazapine 15 mg tablet 15 mg PO HS mental health 04/16/25
Review of Systems
-
History Source: Patient and Other (Nurse at bedside spoke with patient's twin sister who is a interventional radiologist who gave her information and past medical history)
A 12 point ROS was completed and negative except as noted: Yes
Constitutional: Denies Fever, Fatigue or Chills
EENT: Denies Sore Throat or Runny Nose
Respiratory: Reports Cough and Trouble Breathing
Cardiac: Denies Chest Pain, Diaphoresis, Palpitations or Syncope
Abdomen/GI: Denies Abdominal Pain, Nausea, Vomiting, Diarrhea, Constipated, Bloody Stools or Black Stools
: Denies Dysuria, Frequency, Flank Pain, Incontinence, Difficulty Voiding or Urgency
Musculoskeletal: Denies Joint Pain or Edema
Skin: Denies Itching or Rash
Neurological: Denies Dizzy, Headache or Weakness
Endocrine: Reports No Symptoms
Hematologic/Lymphatic: Reports No Symptoms
Psych: Reports Calm (Gets agitated easily when asked questions)
Physical Exam
Vital Signs
Vital Signs
Temp Pulse Resp BP Pulse Ox
97.3 F 84 24 152/84 96
04/16/25 15:30 04/16/25 17:30 04/16/25 17:30 04/16/25 17:00 04/16/25 17:30
Physical Exam
General: Conversant and Other (Chronic memory impairment due to CVA 2023); No Respiratory Distress, Pain, Fever or Chills
HEENT: NormoCephalic, Anicteric, Moist mucous membranes, PERRLA, [place] Conjunctivae, No Ptosis and Oxygen (4 L nasal cannula)
Respiratory: Decreased Breath Sounds (Bilaterally throughout both lung wang); No Wheezes, Rales or Rhonchi
Cardiac: S1/S2 and Regular Rhythm; No Murmur, Rub, Gallop or Peripheral Edema
Breast: Deferred by me
GI: Soft, Non Tender, Non Distended, Normal Bowel Sounds and No Hepatosplenomegaly
Rectal: Deferred by Provider
Genito-urinary: Deferred by me
Musculoskeletal: No Clubbing, No Cyanosis and No Edema
Skin: Warm and Dry; No Rash or Jaundice
Neuro: AO x 3 (But is very forgetful due to history of CVA does not recall diagnosis and dates including medications), No Motor Deficits, Nonfocal/grossly intact, Cranial Nerves Intact and No Sensory Deficits; No Slurred Speech, Facial Droop,
Tremors or Sedated
Psych: Calm (Quickly agitates when asked questions due to history of memory impairment from CVA)
Laboratory Results
-
04/16/25 15:15
04/16/25 15:15
Laboratory Results
Total Bilirubin 0.7 mg/dl (0.2-1.3) 04/16/25 15:15
AST 21 U/L (17-59) 04/16/25 15:15
ALT 15 U/L (0-50) 04/16/25 15:15
Alkaline Phosphatase 137 U/L (38-126) H 04/16/25 15:15
Troponin I 0.015 ng/ml 04/16/25 15:15
Data Reviewed
-
Lab Data: Labs Reviewed by me
Impression/Plan
-
Impression/plan:
Admit to MedSurg
#Acute on chronic COPD exacerbation with poss PNA
#NEW LLL nodular opacity concern for pneumonia/pneumonitis/lung CA
#Hx right hilar mass [address] patient unaware
WBC 15.3 no left shift, 97.3F, HR 84, 152/84
96% 4 L nasal cannula
-Patient given Solu-Medrol in ER
-Patient given 3 DuoNebs in ER
-Continue DuoNebs scheduled and as needed
- Patient given Rocephin, Zithromax
- IV Decadron 4 mg every 8 hours
- Check COVID, influenza swab
- Check noncontrast CT chest for due to new LLL nodular opacity
CXR read by ER attending shows increased densities on top of COPD
CXR: 2.6 cm nodular opacity in the left lung could represent small focus of pneumonitis/pneumonia versus lung CA consider CT follow-up
#Active smoker
55 years 1 pack a day current last year half pack a day
Cessation advised
-Nicotine patch 14 mg
#CKD stage IV
Creatinine 2.4 <4.8 on 05/15/2024 at [facility] was thought to be ATN versus KASSANDRA
Follow BMP
#Hx CLL Dx approximately 5 years ago no current treatment
#PAD/right iliac artery stent placement [facility] February 2024
- Continue Plavix 75 mg daily
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
- Continue Plavix 75 mg daily
#AAA 11 cm per chart February 2024 found at [facility]
DVT prophylaxis
Subcu heparin
DNR patient very clear does not want CPR or ventilator per nurse at bedside his son was on the phone and did confirm this
[2025-04-16] MEDS: ROCEPHIN 1000 MG IV (18:12)
[2025-04-16] MEDS: ZITHROMAX INFUSION 250 IV (18:12)
[2025-04-16 18:31] LABS: Lactic Acid 1.1 mmol/L (0.7-2.0)
--- NOTE | 2025-04-16 18:33 | W.PN.UPDATE ---
Update Note
Progress Note Update
This is an addendum to H&P written by BIT GRINDER Molyl Tavares
I saw and examined the patient.
The BIT GRINDER's note was reviewed and I agree with the note.
Comment:
Mr. Tim Leon is a 69 yo man with hx COPD, tobacco use, CLL, AAA, PAD right iliac stent 05/13, CKD (ATN versus KASSANDRA post-op right iliac artery stent placement), CVA with residual memory loss presents to the ER with acute shortness of breath.
Patient had 3 rounds of duonebs and steroids given in the ER with significant improvement.
Triage VS: T 36.3C, P 84, RR 24, BP 152/84, SpO2 96%
On exam patient is awake, alert, conversant off oxygen. In no acute distress. Lungs with minimal end expiratory wheezing/rhonchi, decreased breath sounds. Abdomen soft, non-tender; no LE swelling.
LABS: WBC 15.3, Hg 14.5, PLT 163, Na 140, K+ 4.9, BUN 27, Cr 2.4, Glucose 95, lactate 1.1, T. Bili 0.7, AST 21, ALT 15, Alk Phos 137, Trop 0.015, BNP 2120
CXR:
2.6 cm nodular opacity in the left lung base. This could represent a small focus of pneumonitis/pneumonia versus lung cancer. Consider follow-up imaging after treatment versus a follow-up chest CT
Acute COPD Exacerbation
Acute respiratory failure with quick improvement post duonebs
Abnl CXR with 2.6cm nodular opacity left lung base - pneumonitis/pneumonia versus lung mass
-admit to telemetry
-continue Cef/Azithro
-follow up chest CT; patient will likely need repeat imaging in 4-6 weeks
-IV Decadron
-standing duonebs
-acapella, mucinex
-outpatient follow up with Pulmonary
Tobacco Use
-nicotine patch
-patient answers 'yes and no' when asked if interested in quitting
Lung Mass
-right hilar mass noted on prior notes; s/p bronchoscopy in 2019 negative for malignant cells
PAD s/p right iliac stent
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
CKD
-creatinine improved from prior value, monitor
Hx CVA
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
CLL
Remainder of plan per BIT GRINDER note
76 minutes spent on patient care
[2025-04-16 19:11] VITALS: BP 155/92
[2025-04-16] MEDS: NICODERM TRANSDERMAL 14 MG TRANSDERM (19:35)
[2025-04-16 20:00] VITALS: BP 160/86
[2025-04-16 20:13] LABS: COVID-19 Antigen Negative (Negative)
--- NOTE | 2025-04-16 20:33 | ED.GENMED ---
History of Present Illness
General
Chief Complaint: Breathing Problem
Time Seen by Provider: 04/16/25 16:38
History of Present Illness
History of Present Illness:
test
Past History
Past History
ED Past Medical History: Other (Peripheral vascular disease)
ED Past Surgical History: Orthopedic (Rotator cuff repair, carpal tunnel repair)
Patient has exhibited threatening behavior?: No
Social History
Tobacco: Smoker
Alcohol: None
Drug: None
Personal:
Living: with family
Employment: Employed
Family History
Family History: Early CAD
Course
Orders/Labs/Results
Orders:
Orders
04/16/25 15:15
Complete Blood Count/With Diff Routine
Comprehensive Metabolic Panel Routine
NT-proBNP Routine
Troponin I Routine
04/16/25 15:55
CR Chest Portable - 1 View Urgent
Reason For Exam: SOB
04/16/25 16:51
Electrocardiogram (*1) Urgent
Reason for Study: Chest Pain
EKG- Treatment ONCE
04/16/25 17:41
Azithromycin 500 mg/250 ml [Zithromax Infusion] 500 mg in 250 ml IV NOW
CefTRIAXone [Rocephin] 1,000 mg IV NOW STA
04/16/25 17:48
CT Chest W/o Iv Contrast Urgent
Comment:
Reason For Exam: smoker, abnormal CXR
04/16/25 18:06
Lactic Acid Q4H
Comment: CANCEL 2nd LACTIC ACID IF 1st LACTIC ACID IS LESS THAN 2
Blood Culture Q30M
PACO Source: Blood/Venous
Specimen Description:
04/16/25 18:07
Blood Culture Q30M
PACO Source: Blood/Venous
Specimen Description:
04/16/25 18:11
Sterile Water [Sterile Water For Injection] 10 ml .ROUTE .[facility]
04/16/25 18:39
Admit/Transfer Patient As Directed
Co-Sign Provider:
Level of Care: Inpatient admission
Assign to:: Medical/Surgical
Physician / Group: rolando jose
Diagnosis: copd exac , concern PNA, lung nodule, smoker
Reason for Hospitalization: copd exac , concern PNA, lung nodule, smoker
Expected length of stay greater than two midnights?: Yes
ELOS- Estimated Length of Stay in days: 3
I certify the patient meets the requirements for IP care: Yes
Code Status As Directed
Resuscitation Status: Do not resuscitate
Reached after discussion with pt or family/Healthcare POA: Yes
Based on pt advanced directive or healthcare POA form: Yes
Decision communicated with: Per patient with nurse present and also son on the phone earlier
DNR Bracelet Application ONCE
04/16/25 18:43
PRN Pain Medication Management As Directed
May give lesser potent ordered pain med per pt: Yes
preference::
Protocol:: Medication orders for pain may be administered in a
manner that supports deferring to patient preference
when the pt is:
- Requesting an ordered lesser potent pain medication.
Least to most potent pain medications are defined
as: acetaminophen < NSAID < tramadol < opioids
(morphine, oxycodone, hydromorphone).
- Requesting a lesser dose of the same medication IF
ORDERED.
- Requesting a less intrusive route of administration
if both routes are prescribed by the provider (PO <
IV).
04/16/25 18:50
Nicotine [Nicoderm Transdermal] 14 mg TRANSDERM DAILY
04/16/25 19:37
COVID-19 Antigen Urgent
Source: Nasal Swab
Influenza A+B Rapid Molecular Urgent
PACO Source: Nasal Swab
Specimen Description:
04/16/25 21:45
Lactic Acid Q4H
Comment: CANCEL 2nd LACTIC ACID IF 1st LACTIC ACID IS LESS THAN 2
Abnormal Lab Results
04/16/25
15:15
WBC 15.3 H 10^3/uL
(4.8-10.8)
RBC 4.41 L 10^6/uL
(4.70-6.10)
MCV 99.1 H fL
(80.0-94.0)
MCH 32.9 H pg
(27.0-31.0)
Absolute Lymphs (auto) 9.8 H 10^3/uL
(1.2-3.4)
Absolute Monos (auto) 1.8 H 10^3/uL
(0.1-0.6)
Neutrophils % 22.6 L %
(42.2-75.2)
Lymphocytes % 64.2 H %
(20.5-51.1)
Monocytes % 11.5 H %
(1.7-9.3)
BUN 27 H mg/dl
(9-20)
Creatinine 2.4 H mg/dL
(0.7-1.3)
Alkaline Phosphatase 137 H U/L
(38-126)
Total Protein 8.6 H g/dl
(6.3-8.2)
04/16/25 15:15
04/16/25 15:15
Vital Signs
Initial and Last Documented VS:
Initial Vital Signs
Temp Pulse Ox
36.3 C 100
04/16/25 15:30 04/16/25 15:30
Last Documented Vital Signs
Temp Pulse Resp BP Pulse Ox
36.3 C 93 18 155/92 97
04/16/25 15:30 04/16/25 19:15 04/16/25 19:15 04/16/25 19:11 04/16/25 18:30
ED Attending Note
-
Portions of this chart may have been created with voice recognition software.� Occasional wrong word or��sound alike� substitutions may have occurred due to the inherent limitations of voice recognition software.
Discharge Plan
Departure
Patient Disposition: Home (Routine Discharge)
Date of Disposition: 04/16/25
Time of Disposition: 17:45
Patient with high blood pressure during this ER visit?: Yes
Discharge Problem:
Acute exacerbation of chronic obstructive pulmonary disease (COPD)
Interventions
Interventions:
*Risk Screen - Suicide Last Done: 04/16/25 15:30
*General Assessment Last Done: 04/16/25 15:30
*Neglect/Abuse Screening Last Done: 04/16/25 15:30
*ED- Fall Risk Assessment Last Done: 04/16/25 15:30
*ED COVID-19 Vaccine History Last Done: 04/16/25 17:30
ED- Cardiac Assessment Last Done: 04/16/25 15:30
ED- Pulmonary Assessment Last Done: 04/16/25 15:30
--- NOTE | 2025-04-16 20:43 | ED.ADDNOTE ---
ED Addendum
ED Addendum
ED Addendum Note:
After I planned on having the patient admitted to the hospital, the sister came out and rather emphatically wants to take him home. He has not required oxygen here. He feels markedly improved currently as of 8:45 PM. He is also eager to go home.
He overall appears much improved. Since I was unable to electronically send prescriptions, I did hand write prescriptions for azithromycin, prednisone, and an albuterol MDI. I also gave the sister the CT report that shows the concern for lung
malignancy. She states that she will have him follow-up with his oncologist in [place].
== END 2025-04-16 20:52 | disposition home or self-care (01) ==
LOC: EMR 16:32
PROVIDERS: Clinical Nurse Specialist Family Health; ATTENDING PHYSICIAN Student in an Organized Health Care Education/Training Program; EMERGENCY PHYSICIAN Emergency Medicine
DX: J44.1 Chronic obstructive pulmonary disease with (acute) exacerbation (principal); C91.10 Chronic lymphocytic leukemia of B-cell type not having achieved remission; N18.4 Chronic kidney disease, stage 4 (severe); I71.40 Abdominal aortic aneurysm, without rupture, unspecified; Z11.52 Encounter for screening for COVID-19; I73.9 Peripheral vascular disease, unspecified; F17.210 Nicotine dependence, cigarettes, uncomplicated; Z79.02 Long term (current) use of antithrombotics/antiplatelets; Z82.49 Family history of ischemic heart disease and other diseases of the circulatory system; Z86.73 Personal history of transient ischemic attack (TIA), and cerebral infarction without residual deficits; Z86.79 Personal history of other diseases of the circulatory system
CPT/HCPCS: 99284; 96365; 96375; 71045; 71250; 80053; 83605; 83880; 84484; 85025; 87040; 87502; 87811; 93005